=== PATIENT | female | born 1990 | race African-American/Black ===

== ENCOUNTER 2018-05-15 20:54 | Emergency (ER) | payer OTHER ==
[2018-05-15 21:08] VITALS: BP 114/80; PULSE 81; TEMP 98.5; BMI 23.3
--- NOTE | 2018-05-15 22:33 | PDOC ---
History of Present Illness - General Chief Complaint: ,Possible Stated Complaint: NAUSEA Time Seen by Provider: 05/15/18 22:33 History Source: Patient Exam Limitations: No Limitations - History of Present Illness Initial Comments: 05/15/18 23:08 28 year old female with no PMH LMP 03/13/18 presented to ED for nausea/vomiting starting last night. She stated her vomit was yellow, denied hematemesis. She denied fever, chills, diarrhea, sick contacts. She admitted to intermittent abdominal pain, located to her umbilicus, which aggravates her nausea and vomiting. She also admitted to intermittent cramping suprapubic pain starting last night. She also complained of increased white vaginal discharge, denied bleeding. Allergies: NKDA Past History - Past Medical History Allergies/Adverse Reactions: Allergies Allergy/AdvReac Type Severity Reaction Status Date / Time No Known Allergies Allergy Verified 04/07/13 21:21 Home Medications: Ambulatory Orders Ondansetron [Zofran Odt -] 4 mg SL TID #6 od.tablet 05/16/18 - Reproductive History Therapeutic (s) & number: No - Immunization History Immunization Up to Date: Yes - Suicide/Smoking/Psychosocial Hx Smoking History: Unknown if ever smoked Number of Cigarettes Smoked Daily: 0 Cigars Per Day: 0 Information on smoking cessation initiated: No Hx Alcohol Use: No Drug/Substance Use Hx: No Review of Systems - Review of Systems Able to Perform ROS?: Yes Comments:: 05/15/18 23:10 General: denied fever, chills, generalized weakness. HEENT: denied sore throat, rhinorrhea, ear pain. Heart: denied chest pain, palpitations, syncope, diaphoresis. Respiratory: denied shortness of breath, cough, sputum production, hemoptysis. Abdomen: admited to abdominal pain, nausea, vomiting. denied diarrhea, constipation, blood in stool. : admitted to vaginal discharge. denied dysuria, increased urinary frequency, hematuria, urinary incontinence, flank pain. Back: denied back pain. Musculoskeletal: denied joint pain, muscle pain, joint swelling. Neurological: denied headache, dizziness, numbness, tingling, weakness. Skin: denied rash, laceration, abrasion. *Physical Exam - Vital Signs Last Vital Signs Temp Pulse Resp BP Pulse Ox 98.5 F 81 20 114/80 100 05/15/18 21:06 05/15/18 21:06 05/15/18 21:06 05/15/18 21:06 05/15/18 21:06 - Physical Exam Comments: 05/15/18 23:11 Constitutional: Well-nourished, Well-developed, appearing stated age. HEENT: head is normocephalic, atraumatic. EOMI. PERRLA. Neck: supple. Full ROM. Heart: regular rhythm. no murmurs, rubs or gallops. Lungs: clear to auscultation bilaterally. no crackles, rhonchi or wheezing. no stridor. Abdomen: soft. flat, nondistended. tenderness to palpation of epigastrium/ umbilicus, mcburneys point nontender, murphys negative, normal bowel sounds. no rebound, guarding, masses. Extremities: peripheral pulses intact. no lower extremity edema. Neurological: CN 2-12 grossly intact. moves all four extremities. Psych: awake, alert, oriented x3. follows commands. answers questions appropriately. Pelvic: normal external genitalia. copious white thin discharge. normal vaginal mucosa. no CMT. no adnexal tenderness. no blood in vault. ED Treatment Course - LABORATORY CBC & Chemistry Diagram: 05/15/18 10:52 05/15/18 10:52 Medical Decision Making - Medical Decision Making 05/15/18 23:12 28 year old female with no PMH presented to ED for nausea/vomiting since last night associated with abdominal pain, increased white vaginal discharge, nipple tenderness. Initial Vital Signs Temp Pulse Resp BP Pulse Ox 98.5 F 81 20 114/80 100 05/15/18 21:06 05/15/18 21:06 05/15/18 21:06 05/15/18 21:06 05/15/18 21:06 Afebrile. No tachycardia. No tachypnea. Normal BP. No hypoixia on room air. Labs ordered: CBC, CMP, serum Beta-quant, lipase, UA/UC/UDS Imaging ordered: Medications ordered: normal saline 1000 cc bolus, zofran 4 mg IV once, pepcid 20 mg IV once, maalox once 05/15/18 23:14 Urine Test Results Urine Color Yellow 05/15/18 22:57 Urine Appearance Clear 05/15/18 22:57 Urine pH 5.5 (5.0-8.0) 05/15/18 22:57 Ur Specific [place] 1.016 (1.010-1.035) 05/15/18 22:57 Urine Protein Negative (NEGATIVE) 05/15/18 22:57 Urine Glucose (UA) Negative (NEGATIVE) 05/15/18 22:57 Urine Ketones 2+ (NEGATIVE) H 05/15/18 22:57 Urine Blood Negative (NEGATIVE) 05/15/18 22:57 Urine Nitrite Negative (NEGATIVE) 05/15/18 22:57 Urine Bilirubin Negative (NEGATIVE) 05/15/18 22:57 Ur Leukocyte Esterase Negative (NEGATIVE) 05/15/18 22:57 UA negative for UTI. 05/15/18 23:29 CBC WBC 5.7 K/mm3 (4.0-10.0) 05/15/18 10:52 RBC 4.21 M/mm3 (3.60-5.2) 05/15/18 10:52 Hgb 13.5 GM/dL (10.7-15.3) 05/15/18 10:52 Hct 39.2 % (32.4-45.2) 05/15/18 10:52 MCV 93.1 fl (80-96) 05/15/18 10:52 MCH 32.1 pg (25.7-33.7) 05/15/18 10:52 MCHC 34.4 g/dl (32.0-36.0) 05/15/18 10:52 RDW 13.2 % (11.6-15.6) 05/15/18 10:52 Plt Count 237 K/MM3 (134-434) 05/15/18 10:52 MPV 8.6 fl (7.5-11.1) 05/15/18 10:52 Absolute Neuts (auto) 3.5 K/mm3 (1.5-8.0) 05/15/18 10:52 Neutrophils % 62.3 % (42.8-82.8) D 05/15/18 10:52 Lymphocytes % 31.0 % (8-40) D 05/15/18 10:52 Monocytes % 5.8 % (3.8-10.2) D 05/15/18 10:52 Eosinophils % 0.7 % (0-4.5) D 05/15/18 10:52 Basophils % 0.2 % (0-2.0) 05/15/18 10:52 Nucleated RBC % 0 % (0-0) 05/15/18 10:52 No leukocytosis. No anemia. UDS negative. -Negative marijuana -Cyclical vomiting syndrome less likely 05/16/18 00:17 CMP Sodium 135 mmol/L (136-145) L 05/15/18 10:52 Potassium 4.3 mmol/L (3.5-5.1) 05/15/18 10:52 Chloride 105 mmol/L (98-107) 05/15/18 10:52 Carbon Dioxide 23 mmol/L (21-32) 05/15/18 10:52 Anion Gap 8 MMOL/L (8-16) 05/15/18 10:52 BUN 8 mg/dL (7-18) 05/15/18 10:52 Creatinine 0.7 mg/dL (0.55-1.3) 05/15/18 10:52 Creat Clearance w eGFR 98.25 (>60) 05/15/18 10:52 Random Glucose 76 mg/dL (74-106) 05/15/18 10:52 Calcium 9.2 mg/dL (8.5-10.1) 05/15/18 10:52 Total Bilirubin 0.7 mg/dL (0.2-1) 05/15/18 10:52 AST 24 U/L (15-37) 05/15/18 10:52 ALT 16 U/L (13-61) 05/15/18 10:52 Alkaline Phosphatase 57 U/L (45-117) 05/15/18 10:52 Total Protein 7.2 g/dl (6.4-8.2) 05/15/18 10:52 Albumin 3.7 g/dl (3.4-5.0) 05/15/18 10:52 Lipase 90 U/L (73-393) 05/15/18 10:52 Beta HCG, Quant 34162.7 mIU/ml 05/15/18 10:52 Serum , Qual Cancelled 05/15/18 10:52 No electrolyte abnormalities. No JENNIFER. No transaminitis. Normal lipase. Beta quant [id number] Imaging ordered: TVUS Results discussed with patient, who stated she has made an appointment with [facility] for a possible medical . Pt agreed to TVUS to rule out ectopic . Pending TVUS. 05/16/18 00:42 TVUS report: live intrauterine . FHR 133. estimated 6 weeks 5 days. No need for Rhogam -No vaginal bleeding -T/S A+ Pt given copy of TVUS report. Pt informed to attend her appointment with [facility] tomorrow for OB care or for medical . Pt discharged. *DC/Admit/Observation/Transfer Diagnosis at time of Disposition: Nausea & vomiting, - Discharge Dispostion Disposition: HOME Condition at time of disposition: Stable Decision to Admit order: No - Prescriptions Prescriptions: Ondansetron [Zofran Odt -] 4 mg SL TID #6 od.tablet - Referrals Referrals: Erich Gandara MD [Staff Physician] - Regina Diaz MD [Staff Physician] - Katie Gomes MD [Staff Physician] - Michael العلي MD [Staff Physician] - - Patient Instructions Additional Instructions: Your test was positive. Your ultrasound showed a live intrauterine . I have sent a prescription to your pharmacy for Zofran (an anti-nausea medication). Take as advised on label. Follow up at your [facility] appointment tomorrow. Return to the Emergency Department for increasing pain, vomiting with Zofran use , chest pain, shortness of breath, lightheadedness like you may pass out or any other new, worsening or concerning symptoms. - Post Discharge Activity
[2018-05-15] MEDS ORDERED: SODIUM CHLORIDE 1,000 ML IV STA (22:50)
[2018-05-15] MEDS ORDERED: ONDANSETRON 4 MG/2 ML VIAL IVPUSH ONE (22:51)
[2018-05-15 23:09] LABS: PH,URINE 5.5 (5.0-8.0); URINE APPEARANCE CLEAR; URINE BILIRUBIN NEGATIVE (NEGATIVE); URINE COLOR YELLOW; URINE GLUCOSE (UA) NEGATIVE (NEGATIVE); URINE KETONE 2+ (NEGATIVE); URINE LEUK ESTERASE NEGATIVE (NEGATIVE); URINE NITRITE NEGATIVE (NEGATIVE); URINE PROTEIN NEGATIVE (NEGATIVE); URINE UROBILINOGEN 0.2 mg/dL (0.2-1.0)
[2018-05-15 23:10] LABS: BASO % 0.2 % (0-2.0); EOS % 0.7 % (0-4.5); HEMATOCRIT 39.2 % (32.4-45.2); HEMOGLOBIN 13.5 GM/dL (10.7-15.3); MCH 32.1 pg (25.7-33.7); MCHC 34.4 g/dl (32.0-36.0); MEAN CELL VOLUME 93.1 fl (80-96); MEAN PLT VOLUME 8.6 fl (7.5-11.1); MONO % 5.8 % (3.8-10.2); NEUT % 62.3 % (42.8-82.8); PLATELET COUNT 237 K/MM3 (134-434); RBC 4.21 M/mm3 (3.60-5.2); RDW 13.2 % (11.6-15.6); WHITE BLOOD COUNT 5.7 K/mm3 (4.0-10.0)
[2018-05-15] MEDS ORDERED: FAMOTIDINE 20 MG/50 ML IVPB 20 MG/50 ML MG IVPB ONE ×2 (23:11→23:37)
[2018-05-15] MEDS ORDERED: MAG HYDROX/AL HYDROX/SIMETH 30 ML UNIT-DOSE CUP PO ONE (23:11)
[2018-05-15] MEDS ORDERED: ONDANSETRON 4 MG/2 ML VIAL ONE (23:37)
[2018-05-15] MEDS ORDERED: MAG HYDROX/AL HYDROX/SIMETH 30 ML UNIT-DOSE CUP ONE (23:37)
[2018-05-15 23:47] LABS: ALBUMIN 3.7 g/dl (3.4-5.0); ALK PHOS 57 U/L (45-117); ANION GAP 8 MMOL/L (8-16); BILIRUBIN,TOTAL 0.7 mg/dL (0.2-1); BLOOD UREA NITROGEN 8 mg/dL (7-18); CALCIUM 9.2 mg/dL (8.5-10.1); CHLORIDE 105 mmol/L (98-107); CO2 23 mmol/L (21-32); CREATININE 0.7 mg/dL (0.55-1.3); GLUCOSE,RANDOM 76 mg/dL (74-106); LIPASE 90 U/L (73-393); POTASSIUM 4.3 mmol/L (3.5-5.1); SGOT/AST 24 U/L (15-37); SGPT/ALT 16 U/L (13-61); SODIUM 135 mmol/L (136-145); TOT PROT 7.2 g/dl (6.4-8.2)
[2018-05-15 23:47] LABS: COCAINE, UR NEGATIVE ng/ml (CUTOFF=300); METHADONE, UR NEGATIVE ng/ml (CUTOFF=300); OPIATES, URI NEGATIVE ng/ml (CUTOFF=300); PHENCYCLIDINE,URINE NEGATIVE ng/ml (CUTOFF=25); URINE AMPHETAMINES NEGATIVE ng/ml (CUTOFF=500); URINE BARBITURATES NEGATIVE ng/ml (CUTOFF=200); URINE BENZODIAZEPINES NEGATIVE ng/ml (CUTOFF=200)
--- NOTE | 2018-05-15 23:53 | PDOC ---
Attending Attestation - [facility] HPI: The patient is a 28 year old female, with no significant past medical history, who presents to the emergency department with, nausea, vomiting, mild periumbilical/suprapubic discomfort, and tenderness to her blt nipples. She denies recent fevers, chills, headache or dizziness. She denies recent diarrhea or constipation. She denies recent dysuria, frequency, urgency or hematuria. She denies recent chest pain or shortness of breath. Allergies: NKDA LMP: 03/13/2018 - Medical Decision Making 05/16/18 00:45 EXAM: <14WKS US and pelvic duplex HISTORY: COMPARISON: None. FINDINGS: Ultrasound :Uterus is anteverted and measures 8.0centimeters in length. There is a single live IUP with estimated gestational age of 6weeks and 5days. There is a normal heart rate of 133beats per minute. There is no subchorionic bleed. The right ovary measures 3.3centimeters in length and appears normal. The left ovary measures 3.6centimeters in length and contains a 2.2 cm thickwalled cyst, likely a corpus luteum. There is no significant free fluid. Pelvic duplex: There is normal arterial and venous flow in both ovaries. IMPRESSION: Live IUP, estimated age 6 weeks 5 days, without definite abnormalities Read by: Stevie Biggs MD <Yanira Bhatia - Last Filed: 05/16/18 00:45> - Resident Resident Name: Melina Ace - ED Attending Attestation I have performed the following: I have examined & evaluated the patient, The case was reviewed & discussed with the resident, I agree w/resident's findings & plan, Exceptions are as noted - HPI HPI: 05/15/18 23:52 28 yo female is concerned she may be because of breast tenderness and nausea - Physicial Exam PE: 05/16/18 00:46 wnwd 28 yo female p/w nausea head ncat neck supple lungs cta b/l cvs [id number] abd no rebound pelvic done by Dr Ace who reports light discharge,no yeast,no vag bleeding ,os closed extremitties FROM,no deformity skin warm and dry neuro axox3,ambulatory 05/16/18 01:06 - Medical Decision Making 05/16/18 01:08 pt feels much better and has an appt with barrel line operator this week 05/16/18 01:09 pelvic US sl iup of 6 weeks 5 days imp first trimester <Amanda Puentes - Last Filed: 05/16/18 01:09> Attestations - Attestations 05/16/18 00:07 Documentation prepared by Yanira Bhatia, acting as medical assistant secretary for Amanda Puentes MD. <Yanira Bhatia - Last Filed: 05/16/18 00:45>
== END 2018-05-16 01:30 | disposition home or self-care (01) ==
LOC: JER 20:54
PROC: 3E0337Z Introduction of Electrolytic and Water Balance Substance into Peripheral Vein, Percutaneous Approach (ICD-10-PCS; principal; 2018-05-15)
PROC: 3E033GC Introduction of Other Therapeutic Substance into Peripheral Vein, Percutaneous Approach (ICD-10-PCS; 2018-05-15)
PROC: 3E033GC Introduction of Other Therapeutic Substance into Peripheral Vein, Percutaneous Approach (ICD-10-PCS; 2018-05-15)
DX: O26.891 Other specified pregnancy related conditions, first trimester (principal); R11.2 Nausea with vomiting, unspecified; Z3A.01 Less than 8 weeks gestation of pregnancy
CPT/HCPCS: 36415; 76801-TC; 80053; 80307; 81003; 83690; 84702; 85025; 86850; 86900; 86901; 87086; 96361; 96365; 96375; 99281-25; J7030

== ENCOUNTER 2018-07-07 22:24 | Emergency (ER) | payer OTHER ==
[2018-07-07 22:37] VITALS: BP 112/70; PULSE 72; TEMP 98; BMI 16.3
--- NOTE | 2018-07-07 23:39 | PDOC ---
History of Present Illness - General Chief Complaint: Vaginal Sxs Stated Complaint: NAUSEA Time Seen by Provider: 07/07/18 23:38 History Source: Patient Exam Limitations: No Limitations - History of Present Illness Initial Comments: 07/08/18 00:09 28 year old female with no PMH presented to ED for gonorrhea/chlamydia testing. Pt stated she has had vaginal odor x2 weeks. Pt denied vaginal discharge, vaginal bleeding, abdominal pain, nausea, vomiting, diarrhea. Pt stated she would like testing to prove to her boyfriend that she has not been cheating. Allergies: NKDA Past History - Past Medical History Allergies/Adverse Reactions: Allergies Allergy/AdvReac Type Severity Reaction Status Date / Time No Known Allergies Allergy Verified 04/07/13 21:21 Home Medications: Ambulatory Orders Doxycycline Oral Suspension [Vibramycin Oral Suspension -] 100 mg PO BID 7 Days #280 ml 07/08/18 Asthma: No Cancer: No Cardiac Disorders: No CVA: No COPD: No - Reproductive History Therapeutic (s) & number: No - Immunization History Immunization Up to Date: Yes - Suicide/Smoking/Psychosocial Hx Smoking History: Never smoked Number of Cigarettes Smoked Daily: 0 Cigars Per Day: 0 Hx Alcohol Use: No Drug/Substance Use Hx: No Review of Systems - Review of Systems Able to Perform ROS?: Yes Comments:: 07/07/18 23:38 General: denied fever, chills, generalized weakness. HEENT: denied sore throat, rhinorrhea, ear pain. Heart: denied chest pain, palpitations, syncope, diaphoresis. Respiratory: denied shortness of breath, cough, sputum production, hemoptysis. Abdomen: denied abdominal pain, nausea, vomiting, diarrhea, constipation, blood in stool. : admitted to vaginal odor. denied dysuria, increased urinary frequency, hematuria, urinary incontinence, flank pain, vaginal discharge, vaginal bleeding. Back: denied back pain. Musculoskeletal: denied joint pain, muscle pain, joint swelling. Neurological: denied headache, dizziness, numbness, tingling, weakness. Skin: denied rash, laceration, abrasion. *Physical Exam - Vital Signs Last Vital Signs Temp Pulse Resp BP Pulse Ox 98 F 72 20 112/70 100 07/07/18 22:35 07/07/18 22:35 07/07/18 22:35 07/07/18 22:35 07/07/18 22:35 - Physical Exam Comments: 07/07/18 23:39 Constitutional: Well-nourished, Well-developed, appearing stated age. HEENT: head is normocephalic, atraumatic. EOMI. PERRLA. Neck: supple. Full ROM. Heart: regular rhythm. no murmurs, rubs or gallops. Lungs: clear to auscultation bilaterally. no crackles, rhonchi or wheezing. no stridor. Abdomen: soft, nontender. normal bowel sounds. no rebound, guarding, masses. Extremities: peripheral pulses intact. no lower extremity edema. Neurological: CN 2-12 grossly intact. moves all four extremities. Psych: awake, alert, oriented x3. follows commands. answers questions appropriately. Pelvic: normal external genitalia. white thin discharge. no CMT. no adnexal tenderness. ED Treatment Course - LABORATORY CBC & Chemistry Diagram: 07/08/18 00:00 07/08/18 00:00 Medical Decision Making - Medical Decision Making 07/08/18 00:12 28 year old female with above PMH presented to ED for vaginal odor, requesting gonorrhea/chlamydia testing. Pt declined HIV/Hepatitis testing. Initial Vital Signs Temp Pulse Resp BP Pulse Ox 98 F 72 20 112/70 100 07/07/18 22:35 07/07/18 22:35 07/07/18 22:35 07/07/18 22:35 07/07/18 22:35 Afebrile. No tachycardia. No tachypnea . No hypotension. No hypoxia on room air. CBC WBC 5.5 K/mm3 (4.0-10.0) 07/08/18 00:00 RBC 3.80 M/mm3 (3.60-5.2) 07/08/18 00:00 Hgb 12.0 GM/dL (10.7-15.3) 07/08/18 00:00 Hct 35.5 % (32.4-45.2) 07/08/18 00:00 MCV 93.4 fl (80-96) 07/08/18 00:00 MCH 31.7 pg (25.7-33.7) 07/08/18 00:00 MCHC 33.9 g/dl (32.0-36.0) 07/08/18 00:00 RDW 13.1 % (11.6-15.6) 07/08/18 00:00 Plt Count 292 K/MM3 (134-434) D 07/08/18 00:00 MPV 8.4 fl (7.5-11.1) 07/08/18 00:00 Absolute Neuts (auto) 2.4 K/mm3 (1.5-8.0) 07/08/18 00:00 Neutrophils % 44.5 % (42.8-82.8) D 07/08/18 00:00 Lymphocytes % 45.2 % (8-40) H D 07/08/18 00:00 Monocytes % 6.3 % (3.8-10.2) 07/08/18 00:00 Eosinophils % 2.9 % (0-4.5) D 07/08/18 00:00 Basophils % 1.1 % (0-2.0) D 07/08/18 00:00 Nucleated RBC % 0 % (0-0) 07/08/18 00:00 No leukocytosis. No anemia. 07/08/18 00:17 Urine testing negative. 07/08/18 00:35 Urine Test Results Urine Color Yellow 07/07/18 23:25 Urine Appearance Clear 07/07/18 23:25 Urine pH 5.5 (5.0-8.0) 07/07/18 23:25 Ur Specific [place] 1.011 (1.010-1.035) 07/07/18 23:25 Urine Protein Negative (NEGATIVE) 07/07/18 23:25 Urine Glucose (UA) Negative (NEGATIVE) 07/07/18 23:25 Urine Ketones Negative (NEGATIVE) 07/07/18 23:25 Urine Blood Negative (NEGATIVE) 07/07/18 23:25 Urine Nitrite Negative (NEGATIVE) 07/07/18 23:25 Urine Bilirubin Negative (NEGATIVE) 07/07/18 23:25 Ur Leukocyte Esterase Negative (NEGATIVE) 07/07/18 23:25 No UTI. No hematuria. 07/08/18 00:59 CMP Sodium 137 mmol/L (136-145) 07/08/18 00:00 Potassium 3.9 mmol/L (3.5-5.1) 07/08/18 00:00 Chloride 107 mmol/L (98-107) 07/08/18 00:00 Carbon Dioxide 28 mmol/L (21-32) 07/08/18 00:00 Anion Gap 3 MMOL/L (8-16) L 07/08/18 00:00 BUN 10 mg/dL (7-18) 07/08/18 00:00 Creatinine 0.9 mg/dL (0.55-1.3) 07/08/18 00:00 Est GFR (CKD-EPI)AfAm 99.44 07/08/18 00:00 Est GFR (CKD-EPI)NonAf 85.80 07/08/18 00:00 Random Glucose 73 mg/dL (74-106) L 07/08/18 00:00 Calcium 8.8 mg/dL (8.5-10.1) 07/08/18 00:00 Total Bilirubin 0.3 mg/dL (0.2-1) 07/08/18 00:00 AST 15 U/L (15-37) 07/08/18 00:00 ALT 16 U/L (13-61) 07/08/18 00:00 Alkaline Phosphatase 51 U/L (45-117) 07/08/18 00:00 Total Protein 6.8 g/dl (6.4-8.2) 07/08/18 00:00 Albumin 3.6 g/dl (3.4-5.0) 07/08/18 00:00 No electrolyte abnormalities. No JENNIFER. No transaminitis. Pt reported she cannot swallow pills. Medications ordered: Ceftriaxone 250 mg IM once, Doxycycline 100 mg PO once PT informed to abstain from sexual contact until antibiotic completion. Pt informed to have partner tested and treated. Pt expressed understanding. Pt discharged. Discharge medications: Doxycycline 100 mg PO BID liquid 07/09/18 18:43 Follow up: Microbiology 07/07/18 23:25 Urine Culture - Final Urine - Urine Clean Catch NO GROWTH OBTAINED *DC/Admit/Observation/Transfer Diagnosis at time of Disposition: Vaginal odor - Discharge Dispostion Disposition: HOME Condition at time of disposition: Stable Decision to Admit order: No - Prescriptions Prescriptions: Doxycycline Oral Suspension [Vibramycin Oral Suspension -] 100 mg PO BID 7 Days #280 ml - Referrals Referrals: Gertrudis Espinoza MD [Primary Care Provider] - - Patient Instructions Additional Instructions: You were seen today for STI testing. Your lab work was normal. Your gonorrhea/chlamydia testing will come back in a few days. You will be called with the results. I have sent an antibiotic to your pharmacy, pick it up and take as advised on label. Do not have sex with anyone until you finish the antibiotics. You must have your partner evaluated and treated. Do not have sex with that partner until they have finished treatment. Follow up with your OBGYN within 3 days. Your care is not complete until you follow up. Return to the Emergency Department for increasing pain, fever, chills, vomiting , or any other new, worsening or concerning symptoms. - Post Discharge Activity Forms/Work/School Notes: Back to Work
[2018-07-08 00:05] LABS: BASO % 1.1 % (0-2.0); EOS % 2.9 % (0-4.5); HEMATOCRIT 35.5 % (32.4-45.2); LYMPH % 45.2 % (8-40); MCH 31.7 pg (25.7-33.7); MCHC 33.9 g/dl (32.0-36.0); MEAN CELL VOLUME 93.4 fl (80-96); MEAN PLT VOLUME 8.4 fl (7.5-11.1); MONO % 6.3 % (3.8-10.2); NEUT % 44.5 % (42.8-82.8); PLATELET COUNT 292 K/MM3 (134-434); RDW 13.1 % (11.6-15.6); WHITE BLOOD COUNT 5.5 K/mm3 (4.0-10.0)
[2018-07-08 00:13] LABS: PH,URINE 5.5 (5.0-8.0); URINE APPEARANCE CLEAR; URINE BILIRUBIN NEGATIVE (NEGATIVE); URINE COLOR YELLOW; URINE GLUCOSE (UA) NEGATIVE (NEGATIVE); URINE KETONE NEGATIVE (NEGATIVE); URINE LEUK ESTERASE NEGATIVE (NEGATIVE); URINE NITRITE NEGATIVE (NEGATIVE); URINE PROTEIN NEGATIVE (NEGATIVE); URINE UROBILINOGEN 0.2 mg/dL (0.2-1.0)
[2018-07-08] MEDS ORDERED: DOXYCYCLINE MONOHYDRATE 25 MG/5 ML SUSPENSION PO ONE (00:31)
[2018-07-08] MEDS ORDERED: DOXYCYCLINE HYCLATE 100 MG CAPSULE PO ONE (00:40)
[2018-07-08 00:41] LABS: CREATININE 0.9 mg/dL (0.55-1.3); POTASSIUM 3.9 mmol/L (3.5-5.1)
[2018-07-08] MEDS ORDERED: cefTRIAXone SODIUM 1 GM VIAL ONE (00:41)
[2018-07-08 00:42] LABS: ALBUMIN 3.6 g/dl (3.4-5.0); BILIRUBIN,TOTAL 0.3 mg/dL (0.2-1); CALCIUM 8.8 mg/dL (8.5-10.1); TOT PROT 6.8 g/dl (6.4-8.2)
--- NOTE | 2018-07-08 02:05 | PDOC ---
Documentation entered by Yanira Bhatia SCRIBE, acting as scribe for Stacie Brito MD. Stacie Brito MD: This documentation has been prepared by the Sriram meyers Nirvannie, SCRIBE, under my direction and personally reviewed by me in its entirety. I confirm that the documentation accurately reflects all work, treatment, procedures, and medical decision making performed by me. Attending Attestation - Resident Resident Name: Melina Ace - ED Attending Attestation I have performed the following: I have examined & evaluated the patient, The case was reviewed & discussed with the resident, I agree w/resident's findings & plan - HPI HPI: 07/08/18 00:41 The patient is a 28 year old female, with no significant past medical history, who presents to the emergency department with 2 weeks of foul smelling vaginal odor. Patient notes she would like gonorrhea/chlamydia testing in order to prove that her significant other has been unfaithful. Patient is sexually active with one male partner, does not use protection. She denies any abnormal vaginal discharge or vaginal bleeding. She denies recent dysuria, frequency, urgency or hematuria. She denies abdominal or flank pain. Pt declines HIV testing. She denies recent fevers, chills, headache or dizziness. She denies recent nausea, vomit, diarrhea or constipation. She denies recent chest pain or shortness of breath. Denies headache, focal weakness/numbness. Allergies: NKDA Primary Care Physician: Dr. Espinoza - Physicial Exam PE: 07/08/18 00:41 Agree with resident exam. - Medical Decision Making 07/08/18 02:02 28yo F presents to the ED for STI testing. Pelvic by Dr. Ace with white discharge in vaginal vault. Plan to treat empirically for GC/CT. GC/CT testing sent and pending Pt well appearing otherwise with no other sxs Feels safe at home Pt to f/u with HISTORIAN RESEARCH ASSISTANT for further evaluation within 3 days. I discussed the physical exam findings, ancillary test results and final diagnoses with the patient. I answered all of the patient's questions. The patient was satisfied with the care received and felt comfortable with the discharge plan and treatment plan. The patient will call their primary care physician within 24 hours to arrange follow-up and will return to the Emergency Department with any new, persistent or worsening symptoms.
== END 2018-07-08 01:34 | disposition home or self-care (01) ==
LOC: JERFT 22:24 → JER 22:24
DX: Z11.3 Encounter for screening for infections with a predominantly sexual mode of transmission (principal); N89.8 Other specified noninflammatory disorders of vagina
CPT/HCPCS: 36415; 81003; 84703; 85025; 87086; 87491; 87591; 96372; 99282-25

== ENCOUNTER 2018-09-09 21:00 | Emergency (ER) | payer SELFPAY ==
[2018-09-09 21:04] VITALS: BMI 16.5
[2018-09-09] MEDS ORDERED: SODIUM CHLORIDE 0.9% 500 ML INFUS.BAG IV ONE (21:42)
[2018-09-09] MEDS ORDERED: ONDANSETRON 4 MG/2 ML VIAL IVPUSH ONE (21:43)
--- NOTE | 2018-09-09 21:51 | PDOC ---
History of Present Illness - General Chief Complaint: Nausea/Vomiting Stated Complaint: NAUSEA Time Seen by Provider: 09/09/18 21:28 - History of Present Illness Initial Comments: Ms. Nixon is a A1 with no significant PMH presenting with nausea and vomiting that started yesterday. Reports that she is approximately 8 weeks (LMP in July) but is planning elective termination and does not see an OB. Reports that she vomited 4x yesterday and 5x today, NBNB. Has not been able to keep anything down. Tries to drink water and juice and vomits it up around 30 minutes later. Reports that she has had similar symptoms during her prior two pregnancies. Reports general malaise. Denies fever, reports mild dizziness and headache. Denies chest pain, denies shortness of breath. Denies abdominal pain. Denies dysuria, or hematuria. Denies blood in the vomit or in the stool. Denies leg swelling. No vaginal bleeding. Past History - Past Medical History Allergies/Adverse Reactions: Allergies Allergy/AdvReac Type Severity Reaction Status Date / Time No Known Allergies Allergy Verified 09/09/18 21:03 Home Medications: Ambulatory Orders Doxycycline Oral Suspension [Vibramycin Oral Suspension -] 100 mg PO BID 7 Days #280 ml 07/08/18 Asthma: No Cancer: No Cardiac Disorders: No CVA: No COPD: No - Reproductive History Cervical CA: No Dysfunctional Uterine Bleeding: No Ectopic : No Endometrial CA: No Polycystic Ovaries: No Therapeutic (s) & number: No Tubal Ligation: No - Immunization History Immunization Up to Date: Yes - Suicide/Smoking/Psychosocial Hx Smoking History: Never smoked Number of Cigarettes Smoked Daily: 0 Cigars Per Day: 0 Hx Alcohol Use: No Drug/Substance Use Hx: No Review of Systems - Review of Systems Comments:: GENERAL/CONSTITUTIONAL: No fever or chills. No weakness._ HEAD, EYES, EARS, NOSE AND THROAT: No change in vision. No ear pain or discharge. No sore throat._ CARDIOVASCULAR: No chest pain or shortness of breath_ RESPIRATORY: Denies cough, hemoptysis. GASTROINTESTINAL: Reports nausea and vomiting. Denies diarrhea/constipation. Denies hematochezia or hematemesis. GENITOURINARY: No dysuria, frequency, or change in urination. MUSCULOSKELETAL: No joint or muscle swelling or pain. No neck or back pain._ SKIN: No rash. NEUROLOGIC: Reports mild headache. No vertigo, loss of consciousness, or change in strength/sensation. ENDOCRINE: No increased thirst. No abnormal weight change. HEMATOLOGIC/LYMPHATIC: No anemia, easy bleeding, or history of blood clots. ALLERGIC/IMMUNOLOGIC: No hives or skin allergy. *Physical Exam - Vital Signs Last Vital Signs Temp Pulse Resp BP Pulse Ox 98.3 F 70 109/72 99 09/09/18 21:01 09/09/18 21:01 09/09/18 21:01 09/09/18 21:01 - Physical Exam Comments: PE GENERAL: Awake, alert, and oriented to person/place/time, in no acute distress_ HEAD: No signs of trauma, normocephalic, atraumatic _ EYES: PERRLA, EOMI, sclera anicteric, conjunctiva clear_ ENT: Hearing grossly normal, nares patent, oropharynx clear without exudates. No uvular deviation. Moist mucosa_ NECK: Normal ROM, supple, no lymphadenopathy, JVD, or masses_ LUNGS: No distress, speaks in full sentences, clear to auscultation bilaterally _ HEART: Regular rate and rhythm, normal S1 and S2, no murmurs appreciated, peripheral pulses normal and equal bilaterally._+ ABDOMEN: Soft, TTP in the epigastric and periumbilical areas, normoactive bowel sounds. No guarding, no rebound. No masses_ EXTREMITIES: Normal inspection, Normal range of motion, no edema. No clubbing or cyanosis_ NEUROLOGICAL: Cranial nerves II through XII grossly intact. Normal speech, normal gait, no focal sensorimotor deficits _ SKIN: Warm, Dry, normal turgor, no rashes or lesions noted. ED Treatment Course - LABORATORY CBC & Chemistry Diagram: 09/09/18 23:55 09/09/18 23:55 Medical Decision Making - Medical Decision Making 09/09/18 21:30 28F, approx. 8 weeks , LMP in July, presenting with nausea and vomiting that started yesterday. NBNB. Plan to obtain CBC, CMP, UA/UC, beta HCG. 09/10/18 0030 Pt signed out to Dr. Baez. *DC/Admit/Observation/Transfer Diagnosis at time of Disposition: Nausea & vomiting Qualifiers: Vomiting type: unspecified Vomiting Intractability: non-intractable Qualified Code(s): R11.2 - Nausea with vomiting, unspecified - Discharge Dispostion Disposition: HOME - Referrals - Patient Instructions Printed Discharge Instructions: Nausea of (Alternative Therapy) Additional Instructions: You were evaluated today in the ER for your nausea and vomiting. We performed laboratory evaluation and hydrated you. We do not believe anything emergent is occurring at this time and you are safe for discharge. Please follow-up with OB/ INVENTORY AND PRICING ASSOCIATE early next week for further evaluation. Return to ER if any further difficulty eating, fever, chills, or other concerning symptoms. - Post Discharge Activity
[2018-09-10 00:10] LABS: BASO % 0.7 % (0-2.0); EOS % 1.4 % (0-4.5); HEMATOCRIT 33.9 % (32.4-45.2); HEMOGLOBIN 12.1 GM/dL (10.7-15.3); LYMPH % 40.1 % (8-40); MCH 32.5 pg (25.7-33.7); MCHC 35.7 g/dl (32.0-36.0); MEAN CELL VOLUME 90.9 fl (80-96); MEAN PLT VOLUME 8.7 fl (7.5-11.1); MONO % 6.8 % (3.8-10.2); PLATELET COUNT 232 K/MM3 (134-434); RBC 3.73 M/mm3 (3.60-5.2); RDW 12.7 % (11.6-15.6); WHITE BLOOD COUNT 5.6 K/mm3 (4.0-10.0)
--- NOTE | 2018-09-10 00:12 | PDOC ---
*Physical Exam - Vital Signs Last Vital Signs Temp Pulse Resp BP Pulse Ox 98.3 F 70 109/72 99 09/09/18 21:01 09/09/18 21:01 09/09/18 21:01 09/09/18 21:01 ED Treatment Course - LABORATORY CBC & Chemistry Diagram: 09/09/18 23:55 09/09/18 23:55 Medical Decision Making - Medical Decision Making 09/10/18 00:[address] Vallejo. Patient is a 28 yo female w/ known who presents for evaluation of N/V. Patient otherwise well appearing and reports this has been standard in her prior pregnancies. Currently pending laboratory evaluation and medication administration. 09/10/18 01:13 Patient noted to be slightly hypokalemic w/ ketones in urine as below. Patient given LR as well as potassium repletion and NS. Patient well appearing following fluids and zofran and reporting relief from symptoms. Discharging for further outpatient follow-up. Laboratory Results - last 24 hr 09/09/18 09/09/18 09/09/18 23:45 23:55 23:55 WBC 5.6 RBC 3.73 Hgb 12.1 Hct 33.9 MCV 90.9 MCH 32.5 MCHC 35.7 RDW 12.7 Plt Count 232 D MPV 8.7 Absolute Neuts (auto) 2.9 Neutrophils % 51.0 Lymphocytes % 40.1 H Monocytes % 6.8 Eosinophils % 1.4 Basophils % 0.7 Nucleated RBC % 0 Sodium 139 Potassium 3.3 L Chloride 106 Carbon Dioxide 24 Anion Gap 9 BUN 6.8 L Creatinine 0.8 Est GFR (CKD-EPI)AfAm 114.66 Est GFR (CKD-EPI)NonAf 98.93 Random Glucose 74 Calcium 8.6 Total Bilirubin 0.5 AST 16 ALT 15 Alkaline Phosphatase 51 Total Protein 6.6 Albumin 3.4 Beta HCG, Quant 61675.0 Urine Color Yellow Urine Appearance Clear Urine pH 5.5 Ur Specific [place] 1.015 Urine Protein Negative Urine Glucose (UA) Negative Urine Ketones 2+ H Urine Blood Negative Urine Nitrite Negative Urine Bilirubin Negative Urine Urobilinogen 0.2 Ur Leukocyte Esterase Negative *DC/Admit/Observation/Transfer Diagnosis at time of Disposition: Nausea & vomiting Qualifiers: Vomiting type: unspecified Vomiting Intractability: non-intractable Qualified Code(s): R11.2 - Nausea with vomiting, unspecified - Discharge Dispostion Disposition: HOME - Referrals - Patient Instructions Printed Discharge Instructions: Nausea of (Alternative Therapy) Additional Instructions: You were evaluated today in the ER for your nausea and vomiting. We performed laboratory evaluation and hydrated you. We do not believe anything emergent is occurring at this time and you are safe for discharge. Please follow-up with OB/ VISITING TEACHER early next week for further evaluation. Return to ER if any further difficulty eating, fever, chills, or other concerning symptoms. - Post Discharge Activity
--- NOTE | 2018-09-10 00:18 | PDOC ---
Documentation entered by Lillian Adam SCRIBE, acting as scribe for Peyton Contreras MD. Peyton Contreras MD: This documentation has been prepared by the Kia meyers Sammi, SCRIBE, under my direction and personally reviewed by me in its entirety. I confirm that the documentation accurately reflects all work, treatment, procedures, and medical decision making performed by me. Attending Attestation - Resident Resident Name: Marco Vallejo - ED Attending Attestation I have performed the following: I have examined & evaluated the patient, The case was reviewed & discussed with the resident, I agree w/resident's findings & plan - HPI HPI: 09/09/18 22:23 The patient is a 28 year old 8 week female A1, with no significant PMH, who presents to the emergency department for evaluation of 2 days of multiple episodes of nausea and vomiting. - Physicial Exam PE: 09/09/18 23:55 GENERAL: Awake, alert, and fully oriented, in no acute distress HEAD: No signs of trauma EYES: PERRLA, EOMI, sclera anicteric, conjunctiva clear ENT: Auricles normal inspection, hearing grossly normal, nares patent, oropharynx clear without exudates. Moist mucosa NECK: Normal ROM, supple, no lymphadenopathy, JVD, or masses LUNGS: Breath sounds equal, clear to auscultation bilaterally. No wheezes, and no crackles HEART: Regular rate and rhythm, normal S1 and S2, no murmurs, rubs or gallops ABDOMEN: Soft, nontender, normoactive bowel sounds. No guarding, no rebound. No masses EXTREMITIES: Normal range of motion, no edema. No clubbing or cyanosis. No cords, erythema, or tenderness NEUROLOGICAL: Cranial nerves II through XII grossly intact. Normal speech, normal gait SKIN: Warm, Dry, normal turgor, no rashes or lesions noted. - Medical Decision Making 09/10/18 00:16 Pt has morning sickness and she wants nausea meds. Pt plans to terminate. A1. She has no PMHx.No other complaints. No vag bleed and no dysuria. 09/10/18 00:19 CBC normal. 09/10/18 02:01 Pt hydrated and treated with nausea meds and she is feeling better and she is ready to go home. Pt also treated with K+
[2018-09-10 00:25] LABS: PH,URINE 5.5 (5.0-8.0); URINE APPEARANCE CLEAR; URINE BILIRUBIN NEGATIVE (NEGATIVE); URINE COLOR YELLOW; URINE GLUCOSE (UA) NEGATIVE (NEGATIVE); URINE KETONE 2+ (NEGATIVE); URINE LEUK ESTERASE NEGATIVE (NEGATIVE); URINE NITRITE NEGATIVE (NEGATIVE); URINE PROTEIN NEGATIVE (NEGATIVE); URINE UROBILINOGEN 0.2 mg/dL (0.2-1.0)
[2018-09-10 00:33] LABS: ALBUMIN 3.4 g/dl (3.4-5.0); BILIRUBIN,TOTAL 0.5 mg/dL (0.2-1); BLOOD UREA NITROGEN 6.8 mg/dL (7-18); CALCIUM 8.6 mg/dL (8.5-10.1); CREATININE 0.8 mg/dL (0.55-1.3); POTASSIUM 3.3 mmol/L (3.5-5.1); TOT PROT 6.6 g/dl (6.4-8.2)
[2018-09-10] MEDS ORDERED: LACTATED RINGERS SOLUTION 1,000 ML/1,000 ML INFUS.BAG IV STA (00:49)
[2018-09-10] MEDS ORDERED: POTASSIUM CHLORIDE TABS 20 MEQ TABLET.ER (FP) PO ONE ×2 (01:10→01:58)
[2018-09-10 02:19] VITALS: BP 116/81; PULSE 79; TEMP 98.4
== END 2018-09-10 03:14 | disposition home or self-care (01) ==
LOC: JER 21:00
PROC: 3E0337Z Introduction of Electrolytic and Water Balance Substance into Peripheral Vein, Percutaneous Approach (ICD-10-PCS; principal; 2018-09-09)
PROC: 3E033GC Introduction of Other Therapeutic Substance into Peripheral Vein, Percutaneous Approach (ICD-10-PCS; 2018-09-09)
DX: O26.891 Other specified pregnancy related conditions, first trimester (principal); O21.1 Hyperemesis gravidarum with metabolic disturbance; O21.9 Vomiting of pregnancy, unspecified; Z3A.08 8 weeks gestation of pregnancy
CPT/HCPCS: 36415; 80053; 81003; 84702; 85025; 87086; 99282-25

== ENCOUNTER 2018-09-13 18:30 | Emergency (ER) | payer OTHER ==
[2018-09-13 18:41] VITALS: BP 124/82; PULSE 72; TEMP 98.3; BMI 22.3
--- NOTE | 2018-09-13 18:41 | PDOC ---
Rapid Medical Evaluation Time Seen by Provider: 09/13/18 18:39 Medical Evaluation: Allergies Allergy/AdvReac Type Severity Reaction Status Date / Time No Known Allergies Allergy Verified 09/09/18 21:03 09/13/18 18:39 I have performed a brief in-person evaluation of this patient. The patient presents with a chief complaint of: 8 wks - LMP-07/17. Weakness, vomiting vaginal bleeding Pertinent physical exam findings: no focal findings. Lead Fire Protection Engineer deferred. I have ordered the following: labs, urine, TVUS The patient will proceed to the ED for further evaluation. Discharge Disposition - Diagnosis Nausea & vomiting - Referrals - Patient Instructions - Post Discharge Activity
[2018-09-13] MEDS ORDERED: SODIUM CHLORIDE 1,000 ML IV STA (20:32)
[2018-09-13] MEDS ORDERED: ONDANSETRON 4 MG/2 ML VIAL IVPUSH ONE (20:32)
[2018-09-13] MEDS ORDERED: FAMOTIDINE 20 MG/50 ML IVPB 20 MG/50 ML MG IVPB ONE (20:32)
[2018-09-13] MEDS ORDERED: MAG HYDROX/AL HYDROX/SIMETH 30 ML UNIT-DOSE CUP PO ONE (20:32)
--- NOTE | 2018-09-13 20:34 | PDOC ---
History of Present Illness - General Chief Complaint: Vaginal Bleeding Stated Complaint: VOMITING Time Seen by Provider: 09/13/18 18:39 History Source: Patient Exam Limitations: No Limitations - History of Present Illness Initial Comments: 09/13/18 20:42 28 year old female with no PMH 8 weeks (US x1 week ago at [facility] with confirmed IUP per pt) A1 presented to ED for nausea/ vomiting x5 days associated with epigastric pain and generalized weakness. Pt reported she has an appointment on Tuesday at [facility] for planned termination of . Pt reported 1 episode of vaginal bleeding last night, in which she noticed blood on the toilet paper after wiping after urination. Pt reported no bleeding since, but has noticed some brown discharge. Pt denied fever, chills, diarrhea, sick contacts, recent travel. Past History - Past Medical History Allergies/Adverse Reactions: Allergies Allergy/AdvReac Type Severity Reaction Status Date / Time No Known Allergies Allergy Verified 09/13/18 18:41 Home Medications: Ambulatory Orders Doxycycline Oral Suspension [Vibramycin Oral Suspension -] 100 mg PO BID 7 Days #280 ml 07/08/18 Doxylamine Succinate [Unisom] 25 mg PO HS PRN #5 tablet 09/13/18 Pyridoxine HCl (Vitamin B6) [Pyridoxine HCl] 25 mg PO TID PRN #15 tablet - Reproductive History Is Patient Now?: Yes (#): 4 Para: 2 Therapeutic (s) & number: Yes (1) Spontaneous : 0 - Immunization History Immunization Up to Date: Yes - Suicide/Smoking/Psychosocial Hx Smoking History: Never smoked Number of Cigarettes Smoked Daily: 0 Cigars Per Day: 0 Hx Alcohol Use: No Drug/Substance Use Hx: No Review of Systems - Review of Systems Able to Perform ROS?: Yes Comments:: 09/13/18 20:44 General: denied fever, chills, generalized weakness. HEENT: denied sore throat, rhinorrhea, ear pain. Cardiovascular: denied chest pain, palpitations, syncope, diaphoresis. Respiratory: denied shortness of breath, cough, sputum production, hemoptysis. Gastrointestinal: admitted to abdominal pain, nausea, vomiting. denied diarrhea , constipation, blood in stool. Genitourinary: admitted to vaginal bleeding. denied dysuria, increased urinary frequency, hematuria, urinary incontinence, flank pain. Back: denied back pain. Musculoskeletal: denied joint pain, muscle pain, joint swelling. Neurological: denied headache, dizziness, numbness, tingling, weakness. Integumentary: denied rash, laceration, abrasion. Hematologic/Lymphatic: denied bruising or bleeding. *Physical Exam - Vital Signs Last Vital Signs Temp Pulse Resp BP Pulse Ox 98.3 F 72 16 124/82 100 09/13/18 18:39 09/13/18 18:39 09/13/18 18:39 09/13/18 18:39 09/13/18 18:39 - Physical Exam Comments: Constitutional: Well-nourished, Well-developed, appearing stated age. HEENT: head is normocephalic, atraumatic. EOMI. PERRLA. Neck: supple. Full ROM. Cardiovascular: regular heart rhythm. no murmurs. no pericardial friction rub. Respiratory: clear to auscultation bilaterally. no crackles, rhonchi or wheezing. no stridor. Gastrointestinal: soft. flat. mild tenderness to palpation of epigastrium. normal bowel sounds. no rebound, guarding, masses. Extremities: peripheral pulses intact. no lower extremity edema. Neurological: CN 2-12 grossly intact. moves all four extremities. Psych: awake, alert, oriented x3. follows commands. answers questions appropriately. Pelvic: normal external genitalia. no pooling of blood in vaginal canal. cervix not visualized. no adnexal tenderness. no CMT. ED Treatment Course - LABORATORY CBC & Chemistry Diagram: 09/13/18 21:14 09/13/18 21:14 Medical Decision Making - Medical Decision Making 28 year old female 8 weeks (verified by outpatient US) A1 presented to ED for intractable nausea/vomiting/epigastric pain. Initial Vital Signs Temp Pulse Resp BP Pulse Ox 98.3 F 72 16 124/82 100 09/13/18 18:39 09/13/18 18:39 09/13/18 18:39 09/13/18 18:39 09/13/18 18:39 Afebrile. No tachycardia. No tachypnea. No hypotension. No hypoxia on room air. Labs ordered: CBC, CMP, T/S, UA/UC Imaging ordered: TVUS Medications ordered: pepcid, maalox, zofran 4 mg IV once, reglan 10 mg IV once, LR 1000 cc bolus x2 09/13/18 21:22 Pt denied TVUS, reported she does not want to go through with the procedure as she does not plan to keep the . Bedside pelvic abdominal US performed by Dr. Carlos, PGY3 EM Resident - which displayed IUP with FHR of 143. 09/13/18 21:53 Pt signed out to night resident, Dr. De La Cruz. Pending CBC, CMP, T/S, Rhogam decision, disposition. 09/14/18 12:40 Follow up: CBC WBC 4.9 K/mm3 (4.0-10.0) 09/13/18 21:14 RBC 4.29 M/mm3 (3.60-5.2) 09/13/18 21:14 Hgb 13.6 GM/dL (10.7-15.3) 09/13/18 21:14 Hct 39.3 % (32.4-45.2) D 09/13/18 21:14 MCV 91.5 fl (80-96) 09/13/18 21:14 MCH 31.7 pg (25.7-33.7) 09/13/18 21:14 MCHC 34.7 g/dl (32.0-36.0) 09/13/18 21:14 RDW 12.9 % (11.6-15.6) 09/13/18 21:14 Plt Count 259 K/MM3 (134-434) 09/13/18 21:14 MPV 8.3 fl (7.5-11.1) 09/13/18 21:14 Absolute Neuts (auto) 2.8 K/mm3 (1.5-8.0) 09/13/18 21:14 Neutrophils % 55.9 % (42.8-82.8) 09/13/18 21:14 Lymphocytes % 34.5 % (8-40) 09/13/18 21:14 Monocytes % 7.7 % (3.8-10.2) 09/13/18 21:14 Eosinophils % 0.8 % (0-4.5) 09/13/18 21:14 Basophils % 1.1 % (0-2.0) 09/13/18 21:14 Nucleated RBC % 0 % (0-0) 09/13/18 21:14 No leukocytosis. No anemia. CMP Sodium 140 mmol/L (136-145) 09/13/18 21:14 Potassium 3.9 mmol/L (3.5-5.1) 09/13/18 21:14 Chloride 106 mmol/L (98-107) 09/13/18 21:14 Carbon Dioxide 27 mmol/L (21-32) 09/13/18 21:14 Anion Gap 7 MMOL/L (8-16) L 09/13/18 21:14 BUN 9.9 mg/dL (7-18) 09/13/18 21:14 Creatinine 0.8 mg/dL (0.55-1.3) 09/13/18 21:14 Est GFR (CKD-EPI)AfAm 114.66 09/13/18 21:14 Est GFR (CKD-EPI)NonAf 98.93 09/13/18 21:14 Random Glucose 67 mg/dL (74-106) L 09/13/18 21:14 Calcium 9.3 mg/dL (8.5-10.1) 09/13/18 21:14 Beta HCG, Quant 29677.7 mIU/ml 09/13/18 21:14 No electrolyte abnormalities. No JENNIFER. Blood Type, Rh Blood Type A POSITIVE 09/13/18 21:14 Rhogam not indicated. *DC/Admit/Observation/Transfer Diagnosis at time of Disposition: Hyperemesis Nausea & vomiting Qualifiers: Vomiting type: unspecified Vomiting Intractability: non-intractable Qualified Code(s): R11.2 - Nausea with vomiting, unspecified - Discharge Dispostion Disposition: HOME Condition at time of disposition: Stable Decision to Admit order: No - Prescriptions Prescriptions: Doxylamine Succinate [Unisom] 25 mg PO HS PRN #5 tablet PRN Reason: Nausea Pyridoxine HCl (Vitamin B6) [Pyridoxine HCl] 25 mg PO TID PRN #15 tablet PRN Reason: Nausea - Referrals Referrals: Gertrudis Espinoza MD [Primary Care Provider] - - Patient Instructions Printed Discharge Instructions: DI for Hyperemesis Gravidarum Additional Instructions: Your lab work was normal. I have sent prescriptions to your pharmacy to treat your nausea. Take as advised on labels. Eat small meals throughout the day. Follow up with your OBGYN within 3 days. Your care is not complete until you follow up. Return to the Emergency Department for increasing pain, shortness of breath, chest pain, vaginal bleeding, lightheadedness like you may pass out, fever, or any other new, worsening or concerning symptoms. - Post Discharge Activity
[2018-09-13] MEDS ORDERED: METOCLOPRAMIDE HCL INJECTION 10 MG/2 ML VIAL IVPUSH ONE (21:01)
[2018-09-13] MEDS ORDERED: LACTATED RINGERS SOLUTION 1000 ML INFUS.BAG IV ONE ×2 (21:02→21:03)
[2018-09-13] MEDS ORDERED: ONDANSETRON 4 MG/2 ML VIAL ONE (21:08)
[2018-09-13] MEDS ORDERED: MAG HYDROX/AL HYDROX/SIMETH 30 ML UNIT-DOSE CUP ONE (21:08)
[2018-09-13] MEDS ORDERED: METOCLOPRAMIDE HCL INJECTION 10 MG/2 ML VIAL ONE (21:38)
[2018-09-13 21:39] LABS: BASO % 1.1 % (0-2.0); EOS % 0.8 % (0-4.5); HEMATOCRIT 39.3 % (32.4-45.2); HEMOGLOBIN 13.6 GM/dL (10.7-15.3); LYMPH % 34.5 % (8-40); MCH 31.7 pg (25.7-33.7); MCHC 34.7 g/dl (32.0-36.0); MEAN CELL VOLUME 91.5 fl (80-96); MEAN PLT VOLUME 8.3 fl (7.5-11.1); MONO % 7.7 % (3.8-10.2); NEUT % 55.9 % (42.8-82.8); PLATELET COUNT 259 K/MM3 (134-434); RBC 4.29 M/mm3 (3.60-5.2); RDW 12.9 % (11.6-15.6); WHITE BLOOD COUNT 4.9 K/mm3 (4.0-10.0)
--- NOTE | 2018-09-13 21:52 | PDOC ---
Documentation entered by Isac Ramires SCRIBE, acting as scribe for Krystle Joe DO. Krystle Joe DO: This documentation has been prepared by the Ike meyers Aiswarya, SCRIBE, under my direction and personally reviewed by me in its entirety. I confirm that the documentation accurately reflects all work, treatment, procedures, and medical decision making performed by me. Attending Attestation - Resident Resident Name: Melina Ace - ED Attending Attestation I have performed the following: I have examined & evaluated the patient, The case was reviewed & discussed with the resident, I agree w/resident's findings & plan - HPI HPI: 09/13/18 21:17 The patient is a 28 year old female currently 8 weeks , with no significant PMH, who presents to the emergency department with epigastric pain for 5 days. Patient endorses associated symptoms of nausea, vomiting, 1 episode of vaginal bleeding and generalized weakness. The patient denies fever, chills, , diarrhea and constipation.Denies dysuria, frequency, urgency and hematuria. Allergies: NKDA Past surgical history: None reported Social history: None reported PCP:Gertrudis Espinoza - Physicial Exam PE: 09/13/18 21:17 Agree with resident PE - Medical Decision Making 09/13/18 21:48 28-year-old female with nausea and vomiting associated with early Bedside ultrasound confirmed a live IUP Patient refusing formal ultrasound because she outpatient Plan for IV hydration, antiemetics and likely discharge home with prompt outpatient OB follow-up
[2018-09-13 22:05] LABS: BLOOD UREA NITROGEN 9.9 mg/dL (7-18); CALCIUM 9.3 mg/dL (8.5-10.1); CREATININE 0.8 mg/dL (0.55-1.3); POTASSIUM 3.9 mmol/L (3.5-5.1)
[2018-09-13 22:59] LABS: PH,URINE 5.5 (5.0-8.0); URINE APPEARANCE CLEAR; URINE BILIRUBIN NEGATIVE (NEGATIVE); URINE COLOR YELLOW; URINE GLUCOSE (UA) NEGATIVE (NEGATIVE); URINE KETONE 3+ (NEGATIVE); URINE LEUK ESTERASE NEGATIVE (NEGATIVE); URINE NITRITE NEGATIVE (NEGATIVE); URINE PROTEIN NEGATIVE (NEGATIVE)
--- NOTE | 2018-09-13 23:37 | PDOC ---
*Physical Exam - Vital Signs Last Vital Signs Temp Pulse Resp BP Pulse Ox 98.3 F 72 16 124/82 100 09/13/18 18:39 09/13/18 18:39 09/13/18 18:39 09/13/18 18:39 09/13/18 18:39 - Physical Exam General Appearance: No: Apparent Distress HEENT: negative: Pale Conjunctivae Neck: positive: Trachea midline Respiratory/Chest: positive: Lungs Clear, Normal Breath Sounds. negative: Respiratory Distress Cardiovascular: positive: Regular Rate, S1, S2 Gastrointestinal/Abdominal: positive: Soft. negative: Protuberent, Guarding, Tenderness, Mass Integumentary: positive: Dry, Warm Neurologic: positive: Alert ED Treatment Course - LABORATORY CBC & Chemistry Diagram: 09/13/18 21:14 09/13/18 21:14 - ADDITIONAL ORDERS Additional order review: Laboratory Results 09/13/18 09/13/18 09/13/18 22:50 22:50 21:14 Sodium Potassium Chloride Carbon Dioxide Anion Gap BUN Creatinine Est GFR (CKD-EPI)AfAm Est GFR (CKD-EPI)NonAf Random Glucose Calcium Beta HCG, Quant Urine Color Yellow Urine Appearance Clear Urine pH 5.5 Ur Specific [place] 1.017 Urine Protein Negative Urine Glucose (UA) Negative Urine Ketones 3+ H Urine Blood Negative Urine Nitrite Negative Urine Bilirubin Negative Urine Urobilinogen 1.0 Ur Leukocyte Esterase Negative Urine HCG, Qual Positive Blood Type A POSITIVE Antibody Screen Negative 09/13/18 09/13/18 21:14 21:14 Sodium 140 Potassium 3.9 Chloride 106 Carbon Dioxide 27 Anion Gap 7 L BUN 9.9 Creatinine 0.8 Est GFR (CKD-EPI)AfAm 114.66 Est GFR (CKD-EPI)NonAf 98.93 Random Glucose 67 L Calcium 9.3 Beta HCG, Quant 25730.7 Urine Color Urine Appearance Urine pH Ur Specific [place] Urine Protein Urine Glucose (UA) Urine Ketones Urine Blood Urine Nitrite Urine Bilirubin Urine Urobilinogen Ur Leukocyte Esterase Urine HCG, Qual Blood Type Antibody Screen 09/13/18 21:14 RBC 4.29 MCV 91.5 MCHC 34.7 RDW 12.9 MPV 8.3 Neutrophils % 55.9 Lymphocytes % 34.5 Monocytes % 7.7 Eosinophils % 0.8 Basophils % 1.1 - Medications Given in the ED: ED Medications Discontinued Medications Generic Name Dose Route Start Last Admin Trade Name Freq PRN Reason Stop Dose Admin Al Hydroxide/Mg Hydroxide 30 ml 09/13/18 20:32 09/13/18 21:20 Mylanta Oral Suspension - PO 09/13/18 20:33 30 ml ONCE ONE Administration Sodium Chloride 1,000 mls @ 1,000 mls/hr 09/13/18 20:32 09/13/18 21:37 Normal Saline - IV 09/13/18 21:31 Not Given ASDIR STA Lactated Ringer's 1,000 ml 09/13/18 21:02 09/13/18 21:39 Lactated Ringers Solution IV 09/13/18 21:03 1,000 ml ONCE ONE Administration Lactated Ringer's 1,000 ml 09/13/18 21:03 09/13/18 21:39 Lactated Ringers Solution IV 09/13/18 21:04 Not Given ONCE ONE Metoclopramide HCl 10 mg 09/13/18 21:01 09/13/18 21:39 Reglan Injection - IVPUSH 09/13/18 21:02 10 mg ONCE ONE Administration Ondansetron HCl 4 mg 09/13/18 20:32 09/13/18 21:20 Zofran Injection IVPUSH 09/13/18 20:33 4 mg ONCE ONE Administration Medical Decision Making - Medical Decision Making 09/14/18 00:15 NV improved after IVF 1L LR and reglan. Able to tolerate drink a jug of ice water. Agrees with decision to be discharged home with PCP fu next week. Able to ambulate. *DC/Admit/Observation/Transfer Diagnosis at time of Disposition: Hyperemesis Nausea & vomiting Qualifiers: Vomiting type: unspecified Vomiting Intractability: non-intractable Qualified Code(s): R11.2 - Nausea with vomiting, unspecified - Discharge Dispostion Disposition: HOME Condition at time of disposition: Stable Decision to Admit order: No - Prescriptions Prescriptions: Doxylamine Succinate [Unisom] 25 mg PO HS PRN #5 tablet PRN Reason: Nausea Pyridoxine HCl (Vitamin B6) [Pyridoxine HCl] 25 mg PO TID PRN #15 tablet PRN Reason: Nausea - Referrals Referrals: Gertrudis Espinoza MD [Primary Care Provider] - - Patient Instructions Printed Discharge Instructions: DI for Hyperemesis Gravidarum Additional Instructions: Your lab work was normal. I have sent prescriptions to your pharmacy to treat your nausea. Take as advised on labels. Eat small meals throughout the day. Follow up with your OBGYN within 3 days. Your care is not complete until you follow up. Return to the Emergency Department for increasing pain, shortness of breath, chest pain, vaginal bleeding, lightheadedness like you may pass out, fever, or any other new, worsening or concerning symptoms. - Post Discharge Activity
== END 2018-09-14 00:41 | disposition home or self-care (01) ==
LOC: JER 18:30
PROC: 3E033GC Introduction of Other Therapeutic Substance into Peripheral Vein, Percutaneous Approach (ICD-10-PCS; principal; 2018-09-13)
PROC: 3E033GC Introduction of Other Therapeutic Substance into Peripheral Vein, Percutaneous Approach (ICD-10-PCS; 2018-09-13)
PROC: BY49ZZZ Ultrasonography of First Trimester, Single Fetus (ICD-10-PCS; 2018-09-13)
DX: O26.891 Other specified pregnancy related conditions, first trimester (principal); O21.0 Mild hyperemesis gravidarum; Z3A.08 8 weeks gestation of pregnancy
CPT/HCPCS: 36415; 80048; 81003; 84702; 84703; 85025; 86850; 86900; 86901; 87086; 99283-25

== ENCOUNTER 2021-05-03 12:04 | Emergency (ER) | payer OTHER ==
[2021-05-03 12:11] VITALS: PULSE 84; TEMP 97; BMI 25.4
[2021-05-03] MEDS ORDERED: SODIUM CHLORIDE 0.9% 500 ML INFUS.BAG IV ONE ×2 (12:41→15:51)
[2021-05-03] MEDS ORDERED: ONDANSETRON 4 MG/2 ML VIAL IVPUSH ONE ×2 (12:41→15:30)
[2021-05-03] MEDS ORDERED: ONDANSETRON 4 MG/2 ML VIAL ONE ×2 (13:04→15:33)
[2021-05-03 13:48] LABS: EOS % 0.5 % (0-4.5); HEMATOCRIT 39.1 % (32.4-45.2); HEMOGLOBIN 13.6 GM/dL (10.7-15.3); LYMPH % 24.6 % (8-40); MCH 31.5 pg (25.7-33.7); MCHC 34.8 g/dl (32.0-36.0); MEAN CELL VOLUME 90.7 fl (80-96); MEAN PLT VOLUME 8.4 fl (7.5-11.1); MONO % 4.2 % (3.8-10.2); NEUT % 69.7 % (42.8-82.8); PLATELET COUNT 257 10^3/uL (134-434); RBC 4.31 M/mm3 (3.60-5.2); RDW 13.3 % (11.6-15.6); WHITE BLOOD COUNT 5.3 K/mm3 (4.0-10.0)
[2021-05-03 14:07] LABS: CALCIUM 9.2 mg/dL (8.5-10.1)
[2021-05-03 14:08] LABS: ALBUMIN 3.9 g/dl (3.4-5.0); BLOOD UREA NITROGEN 6.8 mg/dL (7-18)
[2021-05-03 14:11] LABS: CREATININE 0.9 mg/dL (0.55-1.3)
[2021-05-03 14:12] LABS: TOT PROT 7.3 g/dl (6.4-8.2)
[2021-05-03 14:13] LABS: BILIRUBIN,TOTAL 0.7 mg/dL (0.2-1)
[2021-05-03 15:45] LABS: URINE APPEARANCE CLEAR; URINE BILIRUBIN NEGATIVE (NEGATIVE); URINE COLOR YELLOW; URINE GLUCOSE (UA) NEGATIVE (NEGATIVE); URINE KETONE 3+ (NEGATIVE); URINE LEUK ESTERASE NEGATIVE (NEGATIVE); URINE NITRITE NEGATIVE (NEGATIVE); URINE PROTEIN NEGATIVE (NEGATIVE); URINE UROBILINOGEN 0.2 mg/dL (0.2-1.0)
[2021-05-03] MEDS ORDERED: METOCLOPRAMIDE HCL INJECTION 10 MG/2 ML VIAL IVPUSH ONE (16:46)
[2021-05-03] MEDS ORDERED: METOCLOPRAMIDE HCL INJECTION 10 MG/2 ML VIAL ONE (16:50)
[2021-05-03 18:25] VITALS: BP 106/75
== END 2021-05-03 18:25 | disposition home or self-care (01) ==
LOC: JER 12:04
PROC: 3E033GC Introduction of Other Therapeutic Substance into Peripheral Vein, Percutaneous Approach (ICD-10-PCS; principal; 2021-05-03)
DX: O21.0 Mild hyperemesis gravidarum (principal); Z3A.08 8 weeks gestation of pregnancy
CPT/HCPCS: 36415; 76801-TC; 80053; 81003; 84702; 85025; 87086; 99284-25

== ENCOUNTER 2021-05-05 20:39 | Emergency (ER) | payer OTHER ==
[2021-05-05 20:46] VITALS: BP 104/70; PULSE 77; TEMP 98.1; BMI 19.5
[2021-05-05] MEDS ORDERED: LACTATED RINGERS SOLUTION 1000 ML INFUS.BAG IV ONE (22:04)
[2021-05-05] MEDS ORDERED: METOCLOPRAMIDE HCL INJECTION 10 MG/2 ML VIAL IVPB ONE (22:05)
[2021-05-05] MEDS ORDERED: ONDANSETRON 4 MG/2 ML VIAL ONE (22:09)
[2021-05-05] MEDS ORDERED: METOCLOPRAMIDE HCL INJECTION 10 MG/2 ML VIAL ONE (22:11)
[2021-05-05 22:14] LABS: BASO % 0.4 % (0-2.0); EOS % 0.3 % (0-4.5); HEMATOCRIT 38.1 % (32.4-45.2); HEMOGLOBIN 13.4 GM/dL (10.7-15.3); LYMPH % 15.7 % (8-40); MCH 31.7 pg (25.7-33.7); MCHC 35.3 g/dl (32.0-36.0); MEAN CELL VOLUME 89.9 fl (80-96); MONO % 4.7 % (3.8-10.2); NEUT % 78.9 % (42.8-82.8); PLATELET COUNT 277 10^3/uL (134-434); RBC 4.23 M/mm3 (3.60-5.2); RDW 13.1 % (11.6-15.6); WHITE BLOOD COUNT 7.6 K/mm3 (4.0-10.0)
[2021-05-05] MEDS ORDERED: ACETAMINOPHEN 1000 MG/100 ML BAG IVPB ONE (22:15)
[2021-05-05 22:41] LABS: CALCIUM 8.9 mg/dL (8.5-10.1)
[2021-05-05 22:42] LABS: ALBUMIN 3.9 g/dl (3.4-5.0); BLOOD UREA NITROGEN 10.3 mg/dL (7-18)
[2021-05-05 22:45] LABS: CREATININE 1.1 mg/dL (0.55-1.3)
[2021-05-05 22:46] LABS: BILIRUBIN,TOTAL 0.8 mg/dL (0.2-1); TOT PROT 7.4 g/dl (6.4-8.2)
[2021-05-05] MEDS ORDERED: ACETAMINOPHEN INJECTION 100 ML IVPB ONE (22:59)
== END 2021-05-06 00:17 | disposition home or self-care (01) ==
LOC: JER 20:39
PROC: 3E033GC Introduction of Other Therapeutic Substance into Peripheral Vein, Percutaneous Approach (ICD-10-PCS; principal; 2021-05-05)
DX: O20.0 Threatened abortion (principal); O21.0 Mild hyperemesis gravidarum; Z3A.01 Less than 8 weeks gestation of pregnancy
CPT/HCPCS: 36415; 76817-TC; 80053; 84702; 85025; 96374; 96375; 99284-25

== ENCOUNTER 2022-03-15 21:21 | Emergency (ER) | payer OTHER ==
[2022-03-15 21:29] VITALS: BP 117/77; PULSE 80; RESP 18; TEMP 98.1; BMI 27.3
[2022-03-15] MEDS ORDERED: IBUPROFEN 600 MG TABLET (FP) PO ONE ×2 (22:18→22:27)
== END 2022-03-15 22:37 | disposition home or self-care (01) ==
LOC: JERFT 21:21 → JER 21:21 → JERFT 22:37
DX: S50.11XA Contusion of right forearm, initial encounter (principal); S80.01XA Contusion of right knee, initial encounter; V43.52XA Car driver injured in collision with other type car in traffic accident, initial encounter
CPT/HCPCS: 99283-25

== ENCOUNTER 2022-10-03 09:06 | Emergency (ER) | payer OTHER ==
[2022-10-03 09:11] VITALS: RESP 18; TEMP 98.2; BMI 28.3
[2022-10-03] MEDS ORDERED: ONDANSETRON 4 MG/2 ML VIAL IVPUSH ONE (09:34)
[2022-10-03] MEDS ORDERED: DEXTROSE 5%-NORMAL SALINE 1,000 ML IV ONE (09:35)
[2022-10-03] MEDS ORDERED: ONDANSETRON 4 MG/2 ML VIAL ONE (09:38)
[2022-10-03 10:07] LABS: BASO % 0.7 % (0-2.0); EOS % 1.8 % (0-4.5); HEMATOCRIT 38.7 % (32.4-45.2); HEMOGLOBIN 13.6 GM/dL (10.7-15.3); LYMPH % 31.7 % (8-40); MCH 30.7 pg (25.7-33.7); MCHC 35.2 g/dl (32.0-36.0); MEAN CELL VOLUME 87.2 fl (80-96); MEAN PLT VOLUME 8.2 fl (7.5-11.1); NEUT % 59.8 % (42.8-82.8); PLATELET COUNT 279 10^3/uL (134-434); RBC 4.44 M/mm3 (3.60-5.2); RDW 13.5 % (11.6-15.6); WHITE BLOOD COUNT 4.9 K/mm3 (4.0-10.0)
[2022-10-03] MEDS ORDERED: PYRIDOXINE HCL 100 MG/1 ML VIAL IM SCH (10:30)
[2022-10-03 10:35] LABS: CALCIUM 8.8 mg/dL (8.5-10.1)
[2022-10-03 10:36] LABS: ALBUMIN 3.6 g/dl (3.4-5.0); BLOOD UREA NITROGEN 6.2 mg/dL (7-18); MAGNESIUM 2.2 mg/dL (1.8-2.4)
[2022-10-03 10:39] LABS: CREATININE 0.9 mg/dL (0.55-1.3)
[2022-10-03 10:41] LABS: BILIRUBIN,TOTAL 0.4 mg/dL (0.2-1)
[2022-10-03 11:04] LABS: PH,URINE 6.5 (5.0-8.0); URINE APPEARANCE CLEAR; URINE BILIRUBIN NEGATIVE (NEGATIVE); URINE COLOR YELLOW; URINE GLUCOSE (UA) TRACE (NEGATIVE); URINE KETONE 1+ (NEGATIVE); URINE LEUK ESTERASE NEGATIVE (NEGATIVE); URINE NITRITE NEGATIVE (NEGATIVE); URINE PROTEIN NEGATIVE (NEGATIVE); URINE UROBILINOGEN 0.2 mg/dL (0.2-1.0)
[2022-10-03 12:24] VITALS: BP 109/74; PULSE 80
== END 2022-10-03 12:37 | disposition home or self-care (01) ==
LOC: JER 09:06
PROC: 3E033NZ Introduction of Analgesics, Hypnotics, Sedatives into Peripheral Vein, Percutaneous Approach (ICD-10-PCS; principal; 2022-10-03)
PROC: 3E023GC Introduction of Other Therapeutic Substance into Muscle, Percutaneous Approach (ICD-10-PCS; 2022-10-03)
PROC: 3E0337Z Introduction of Electrolytic and Water Balance Substance into Peripheral Vein, Percutaneous Approach (ICD-10-PCS; 2022-10-03)
DX: O21.9 Vomiting of pregnancy, unspecified (principal); Z3A.01 Less than 8 weeks gestation of pregnancy
CPT/HCPCS: 36415; 76815; 80053; 81003; 83690; 83735; 84702; 85025; 86850; 86900; 86901; 87086; 99284-25